=== PATIENT | female | born 1945 | race Caucasian/White ===

== ENCOUNTER 2019-01-05 06:03 | Emergency (ER) | payer OTHER, MEDICARE ==
[2019-01-05] MEDS ORDERED: fentaNYL 100 MCG/2 ML SDV IVPUSH ONE (06:25)
--- NOTE | 2019-01-05 06:25 | EDM.PDOC ---
ED HPI GENERAL MEDICAL PROBLEM - General Chief Complaint: Trauma Stated Complaint: Trauma Time Seen by Provider: 01/05/19 06:03 Source of Information: Reports: Patient History Limitations: Reports: No Limitations - History of Present Illness INITIAL COMMENTS - FREE TEXT/NARRATIVE: Pt. presents to ER via EMS. Pt. states that she fell backward down the stairs while carrying clothes up stairs. Unknown loss of consciousness. She complains of neck pain, no numbness/tingling in extremities. Her primary complaint is that of posterior chest pain, primarily on the L side. She states that she drinking some last night. On arrival of EMS, she was hypoxia with an O2 sat of 80%. Her O2 sat increased to 95% after oxygen was started by nasal cannula. She complains of pain to her R anterior chest pain, L posteriolateral chest, and mid to lower back pain. She denies any pelvic or long bone injury. Onset Date: 01/04/19 Location: Reports: Head, Chest, Back, Lower Extremity, Right - Related Data Allergies Allergy/AdvReac Type Severity Reaction Status Date / Time clindamycin AdvReac Diarrhea Verified 03/22/18 13:31 Home Meds: Home Meds Albuterol Sulfate [Proair Hfa] 2 puff INH Q4H PRN 03/05/18 [History] Amitriptyline HCl 100 mg PO BEDTIME 03/05/18 [History] Amitriptyline [Elavil] 25 mg PO BEDTIME 03/05/18 [History] Aspirin [Halfprin] 81 mg PO DAILY 03/05/18 [History] Benazepril [Lotensin] 20 mg PO DAILY 03/05/18 [History] Budesonide/Formoterol Fumarate [Symbicort 160-4.5 Mcg Inhaler] 2 puff INH BID [History] Carisoprodol [Soma] 350 mg PO QID PRN 03/05/18 [History] Celecoxib [CeleBREX] 200 mg PO DAILY 03/05/18 [History] Cholecalciferol (Vitamin D3) [Vitamin D3] 4,000 unit PO DAILY 03/05/18 [History] Cyanocobalamin (Vitamin B12) [Vitamin B12] 1 ml IM Q30D 03/05/18 [History] DULoxetine [Cymbalta] 40 mg PO BID 03/05/18 [History] Estrogens, Conjugated [Premarin] 1 tab PO DAILY 03/05/18 [History] Fish Oil/DHA/EPA [Fish Oil 1,200 MG] 1,200 mg PO BID 03/05/18 [History] Gabapentin [Neurontin] 100 mg PO TID 30 Days #90 capsule 03/05/18 [Rx] Hydrocodone/Acetaminophen [[place] 10-325 Tablet] 1 tab PO Q4H PRN 03/05/18 [ History] Triamcinolone Acetonide [Kenalog 0.1% Crm] 1 applic TOP BID PRN 03/05/18 [ History] Zolpidem Tartrate [Ambien] 10 mg PO BEDTIME 03/05/18 [History] hydrOXYzine pamoate [Vistaril] 50 - 100 mg PO Q6H PRN 03/05/18 [History] Past Medical History HEENT History: Reports: Hard of Hearing Cardiovascular History: Reports: Hypertension Respiratory History: Reports: COPD, Other (See Below) Other Respiratory History: "Smoker's cough" Musculoskeletal History: Reports: Arthritis, Back Pain, Chronic, Gout, Osteoarthritis, Osteoporosis, RA Neurological History: Reports: Other (See Below) Other Neuro History: HX Murillo's palsy Psychiatric History: Reports: Anxiety, Depression Hematologic History: Reports: B12 Deficiency Dermatologic History: Reports: Venous Stasis Dermatitis - Infectious Disease History Infectious Disease History: Reports: Hepatitis C - Past Surgical History HEENT Surgical History: Reports: Cataract Surgery Cardiovascular Surgical History: Reports: None Respiratory Surgical History: Reports: None GI Surgical History: Reports: Appendectomy, Cholecystectomy Female Surgical History: Reports: Hysterectomy, Salpingo-Oophorectomy Musculoskeletal Surgical History: Reports: Arthroscopic Knee Dermatological Surgical History: Reports: None Social & Family History - Family History Musculoskeletal: Reports: Fibromyalgia, Osteoarthritis, RA Neurological: Reports: Parkinson's Psychiatric: Reports: Depression Endocrine/Metabolic: Reports: Diabetes, type II Review of Systems - Review of Systems Review Of Systems: See Below Constitutional: Reports: No Symptoms Eyes: Reports: No Symptoms Ears: Reports: No Symptoms Nose: Reports: No Symptoms Mouth/Throat: Reports: No Symptoms Respiratory: Reports: Shortness of Breath, Other (chest pain, unable to take a deep breath) Cardiovascular: Reports: Chest Pain GI/Abdominal: Reports: No Symptoms Genitourinary: Reports: No Symptoms Musculoskeletal: Reports: No Symptoms Skin: Reports: No Symptoms Neurological: Reports: Other (loss of consciousness) Psychiatric: Reports: No Symptoms ED EXAM, GENERAL - Physical Exam Exam: See Below Exam Limited By: No Limitations General Appearance: Alert, WD/WN, No Apparent Distress Eye Exam: Bilateral Eye: EOMI, Normal Fundi, Normal Inspection, PERRL Ears: Normal External Exam, Normal Canal, Hearing Grossly Normal Nose: Normal Inspection, Normal Mucosa, No Blood Throat/Mouth: Normal Inspection, Normal Lips, Normal Teeth, Normal Gums, Normal Oropharynx Head: Atraumatic, Normocephalic Neck: Normal Inspection, Supple Respiratory/Chest: Decreased Breath Sounds (bilaterally, unable to take deep breath) Cardiovascular: Normal Peripheral Pulses, Regular Rate, Rhythm, No Edema Peripheral Pulses: 4+: Radial (L), Radial (R) GI/Abdominal: Soft, Non-Tender, No Organomegaly, No Distention, Pelvis Stable (Female) Exam: Deferred Rectal (Female) Exam: Deferred Back Exam: Other (bruising to mid back area, pain to midline low back) Extremities: Normal Inspection, Normal Range of Motion Neurological: Alert, Oriented, CN II-XII Intact, Normal Cognition, No Motor/ Sensory Deficits Psychiatric: Normal Affect, Normal Mood Skin Exam: Warm, Dry, Intact, Normal Color Lymphatic: No Adenopathy Course - Orders/Labs/Meds Orders: Active Orders 24 hr Category Date Time Status Chest 1V Frontal [CR] Stat Exams 01/05/19 06:08 Ordered CBC WITH AUTO DIFF [HEME] Stat Lab 01/05/19 06:08 Ordered COMPREHENSIVE METABOLIC PN,CMP [CHEM] Stat Lab 01/05/19 06:08 Ordered INR,PT,PROTHROMBIN TIME [COAG] Stat Lab 01/05/19 06:08 Ordered MAGNESIUM [CHEM] Stat Lab 01/05/19 06:11 Ordered PHOSPHORUS [CHEM] Stat Lab 01/05/19 06:11 Ordered - Radiology Interpretation Free Text/Narrative:: Chest x-ray reveals rib fractures on the right, at least 6th and 7th, ? non- displaced 5th rib fracture on the left. No pneumothorax. Possible pulmonary contusion. Departure - Departure Time of Disposition: 06:47 Disposition: DC/Tfer to [facility] 02 Clinical Impression: Trauma of chest, Fall, Pulmonary contusion - Discharge Information - My Orders Last 24 Hours: My Active Orders 01/05/19 06:08 Chest 1V Frontal [CR] Stat CBC WITH AUTO DIFF [HEME] Stat COMPREHENSIVE METABOLIC PN,CMP [CHEM] Stat INR,PT,PROTHROMBIN TIME [COAG] Stat 01/05/19 06:11 MAGNESIUM [CHEM] Stat PHOSPHORUS [CHEM] Stat - Assessment/Plan Last 24 Hours: My Active Orders 01/05/19 06:08 Chest 1V Frontal [CR] Stat CBC WITH AUTO DIFF [HEME] Stat COMPREHENSIVE METABOLIC PN,CMP [CHEM] Stat INR,PT,PROTHROMBIN TIME [COAG] Stat 01/05/19 06:11 MAGNESIUM [CHEM] Stat PHOSPHORUS [CHEM] Stat Plan: Trauma code was called. Pt. arrived to ER with c-collar in place. Assessment was performed. Decision was made to transfer the patient due to her hypoxia, history of underlying chronic disease, and loss of consciousness. Pain was treated with IV fentanyl. Pt. was hemodynamically stable during stay in ER. Discussed findings with patient. She agrees to transfer. No other imaging was performed at this facility.
[2019-01-05 06:41] LABS: ANION GAP 17.1 mmol/L (10-20); CHLORIDE,CL 102 mmol/L (98-107); SODIUM,NA 139 mmol/L (136-145)
--- NOTE | 2019-01-05 08:08 | CR ---
[id number] RAD/RAD Chest PA or AP 1V EXAM: SINGLE VIEW CHEST. INDICATION: TRAUMA. HYPOXIA COMPARISON: NO PREVIOUS SIMILAR EXAM IS AVAILABLE FINDINGS: Old appearing lower right rib fractures are seen. There is mild volume loss at the right lung base. There is no pneumothorax. There is minimal pleural reaction at the right lung base. The cardiomediastinal contour is moderately enlarged. IMPRESSION: OLD APPEARING LOWER RIGHT RIB FRACTURES. NO PNEUMOTHORAX. Russel Frye MD 01/05/19 0807 Thank you for allowing us to participate in the care of your patient.
== END 2019-01-05 06:45 | disposition short-term general hospital (02) ==
LOC: VM.ED 06:03
DX: S27.322A Contusion of lung, bilateral, initial encounter (principal); F41.9 Anxiety disorder, unspecified; F32.9 Major depressive disorder, single episode, unspecified; J44.9 Chronic obstructive pulmonary disease, unspecified; Z88.1 Allergy status to other antibiotic agents; Z79.82 Long term (current) use of aspirin; Z79.899 Other long term (current) drug therapy; W10.9XXA Fall (on) (from) unspecified stairs and steps, initial encounter
CPT/HCPCS: 36415; 71045; 80053; 83735; 84100; 85025; 85610; 96374; 99285-25; J3010

== ENCOUNTER 2022-05-21 23:15 | Inpatient (IN) | payer OTHER ==
[2022-05-21] MEDS ORDERED: Morphine 2 MG/ML SYRINGE ONE (23:32)
[2022-05-22] MEDS ORDERED: Sodium Chloride 0.9% 1,000 ML IV ONE ×2 (00:30→01:55)
[2022-05-22] MEDS ORDERED: Acetaminophen/HYDROcodone 325-10 MG Tab ONE (01:02)
[2022-05-22] MEDS ORDERED: Iopamidol 755 Mg/ML 100 ML Bottle ONE (01:10)
[2022-05-22] MEDS ORDERED: Piperacillin/Tazobactam 3.375 GM in Sodium Chloride 0.9% 100 ML IV ONE ×2 (02:20→09:26)
[2022-05-22] MEDS ORDERED: Morphine 4 MG/ML Syringe ONE (04:53)
[2022-05-22] MEDS ORDERED: Amitriptyline 25 MG Tab ONE (04:53)
[2022-05-22] MEDS ORDERED: Cyclobenzaprine 10 MG Tab ONE (04:53)
[2022-05-22] MEDS ORDERED: Enoxaparin 40 MG/0.4 ML Syringe ONE (04:53)
[2022-05-22] MEDS ORDERED: Zolpidem 5 MG Tab ONE (04:53)
[2022-05-22] MEDS ORDERED: Morphine 2 MG/ML SYRINGE ONE ×2 (04:53)
[2022-05-22] MEDS ORDERED: DULoxetine 20 MG Cap ONE ×2 (04:53)
[2022-05-22] MEDS ORDERED: NS + KCl 20mEq/L 1,000 ML IV ONE (11:11)
[2022-05-22] MEDS ORDERED: Formoterol/Mometasone 200-5 MCG 13 GM Inhaler ONE (19:54)
[2022-05-23] MEDS ORDERED: Potassium Chloride 20 MEQ Tab.ER ONE (05:22)
[2022-05-23] MEDS ORDERED: DULoxetine 20 MG Cap ONE (05:22)
[2022-05-23] MEDS ORDERED: Acetaminophen/HYDROcodone 325-10 MG Tab ONE (05:22)
[2022-05-23] MEDS ORDERED: Cyclobenzaprine 10 MG Tab ONE (05:22)
[2022-05-23] MEDS ORDERED: Morphine 2 MG/ML SYRINGE ONE ×2 (05:22)
[2022-05-23] MEDS ORDERED: Enoxaparin 40 MG/0.4 ML Syringe ONE (05:22)
[2022-05-23] MEDS ORDERED: Piperacillin/Tazobactam 3.375 GM in Sodium Chloride 0.9% 100 ML IV ONE (10:51)
[2022-06-14 13:42] LABS: CORONAVIRUS COVID-19 NAA NEGATIVE (NEGATIVE)
[2022-06-14 13:50] LABS: CHLORIDE,CL 95 mmol/L (98-107); SODIUM,NA 133 mmol/L (136-145)
[2022-06-14 13:51] LABS: ANION GAP 16.8 mmol/L (5-15); ESTIMATED GFR 52 mL/min (>=60)
[2022-06-14 13:58] LABS: BARBITURATE SCREEN,URINE NEGATIVE (NEGATIVE); BENZODIAZEPINES SCREEN,URINE NEGATIVE (NEGATIVE); BUPRENORPHINE SCREEN,URINE NEGATIVE (NEGATIVE); METHAMPHETAMINE SCREEN, URINE NEGATIVE (NEGATIVE); THC SCREEN,URINE 50 NG/ML NEGATIVE (NEGATIVE)
[2022-06-14 13:59] LABS: PCO2 ARTERIAL,POC 43 mmHg (35-48)
[2022-06-14 15:34] LABS: ANION GAP 11.1 mmol/L (5-15); CHLORIDE,CL 103 mmol/L (98-107); ESTIMATED GFR 97 mL/min (>=60); SODIUM,NA 137 mmol/L (136-145)
== END 2022-05-23 18:30 | disposition home or self-care (01) | DRG 871 ==
LOC: VM.ED 23:15 → VM.ZCENSUS 05-22 03:20
PROVIDERS: ADMIT Internal Medicine; ATTEND Internal Medicine
DX: A41.9 Sepsis, unspecified organism (principal); K85.90 Acute pancreatitis without necrosis or infection, unspecified; M80.8AXA Other osteoporosis with current pathological fracture, other site, initial encounter for fracture; M06.9 Rheumatoid arthritis, unspecified; I10 Essential (primary) hypertension; Z66 Do not resuscitate; F11.90 Opioid use, unspecified, uncomplicated; Z20.822 Contact with and (suspected) exposure to COVID-19; J44.9 Chronic obstructive pulmonary disease, unspecified; D50.9 Iron deficiency anemia, unspecified; E87.6 Hypokalemia; Z96.641 Presence of right artificial hip joint; Z90.49 Acquired absence of other specified parts of digestive tract; Z98.42 Cataract extraction status, left eye; Z87.81 Personal history of (healed) traumatic fracture; Z98.41 Cataract extraction status, right eye; Z90.710 Acquired absence of both cervix and uterus; Z98.890 Other specified postprocedural states; Z87.891 Personal history of nicotine dependence
CPT/HCPCS: 0240U; 36415; 36600; 71045; 71275; 74177; 80053; 80061; 80305-QW; 80307; 81001; 82140; 82150; 82803; 82947; 82977; 83605; 83690; 83735; 84100; 84484; 85025; 86140; 87040; 93005; A9270-GY; J1650; J2270; J2543; J3480; J7030; Q9967

== ENCOUNTER 2024-01-30 21:22 | Inpatient (IN) | payer MEDICARE, OTHER ==
[2024-01-30] MEDS ORDERED: Sodium Chloride 0.9% 10 ML Syringe FLUSH PRN (21:47)
[2024-01-30 22:05] LABS: BASOPHILS PERCENT AUTO 0.4 % (0.2-1.2); EOSINOPHILS ABSOLUTE AUTO 0.1 x10^3/uL (0.0-0.5); EOSINOPHILS PERCENT AUTO 0.6 % (0.0-4.0); HEMATOCRIT 35.5 % (33.0-47.0); HEMOGLOBIN 11.9 g/dL (12.0-16.0); IMMATURE GRAN ABSOLUTE AUTO 0.01 x10^3/uL (0.00-0.07); LYMPHOCYTES ABSOLUTE AUTO 0.9 x10^3/uL (1.0-4.8); LYMPHOCYTES PERCENT AUTO 9.1 % (25.0-50.0); MEAN CORPUSCULAR HEMOGLOBIN 28.7 pg (26.0-32.0); MEAN CORPUSCULAR HGB CONC 33.5 g/dL (32.0-36.0); MEAN CORPUSCULAR VOLUME 85.5 fL (78.0-93.0); MONOCYTES ABSOLUTE AUTO 0.8 x10^3/uL (0.0-0.8); MONOCYTES PERCENT AUTO 8.5 % (2.0-11.0); NEUTROPHILS ABSOLUTE AUTO 8.1 x10^3/uL (1.8-7.7); NEUTROPHILS PERCENT AUTO 81.3 % (50.0-80.0); PLATELET COUNT,PLT 381 x10^3/uL (130-400); RED BLOOD CELL COUNT 4.15 x10^6/uL (4.00-5.50); WHITE BLOOD CELL COUNT,WBC 9.9 x10^3/uL (4.0-10.0)
[2024-01-30] MEDS: Albuterol/Ipratropium 3.0-0.5 MG/3 ML Neb Soln NEB ONE (22:08)
[2024-01-30 22:25] LABS: PROTHROMBIN TIME 10.4 SEC (8.9-11.5); PTT,PARTIAL THROMBOPLSTIN TIME 26.5 SEC (21.9-33.8)
[2024-01-30] MEDS: methylPREDNISolone Sodium Succinate 125 MG/2 ML SDV IV ONE (22:28)
[2024-01-30 22:29] LABS: LACTIC ACID 1.2 mmol/L (0.4-2.0)
[2024-01-30] MEDS: cefTRIAXone 1 GM Vial IVPUSH ONE (22:30)
[2024-01-30 22:31] LABS: BLOOD UREA NITROGEN,BUN 13 mg/dL (7-18); CALCIUM 9.1 mg/dL (8.5-10.1); CARBON DIOXIDE,CO2 31 mmol/L (21-32); CHLORIDE,CL 94 mmol/L (98-107); GLUCOSE RANDOM 112 mg/dL (70-99); PROTEIN TOTAL,TP 7.2 g/dL (6.4-8.2); SODIUM,NA 135 mmol/L (136-145)
[2024-01-30 22:32] LABS: A/G RATIO 0.71; ALANINE AMINOTRANSFERASE,ALT 28 U/L (14-59); ALKALINE PHOSPHATASE 112 U/L (46-116); ASPARTATE AMNIOTRANSFERASE,AST 33 U/L (15-37); BILIRUBIN TOTAL 0.5 mg/dL (0.2-1.0); C-REACTIVE PROTEIN 3.32 mg/dL (<=0.50); MAGNESIUM 1.3 mg/dL (1.8-2.4); PRO B-TYPE NATRIUR PEPT,BNPPRO 1305 pg/mL (<=450)
[2024-01-30 22:34] LABS: ANION GAP 12.7 mmol/L (5-15); ESTIMATED GFR 58 mL/min (>=60); POTASSIUM,K 2.7 mmol/L (3.5-5.1)
[2024-01-30 23:02] LABS: HCO3 VENOUS,POC 33 mmol/L (22-29); O2 SATURATION VENOUS,POC 96 %; PCO2 VENOUS,POC 52 mmHg (41-51); PH VENOUS,POC 7.41 pH (7.32-7.43); PO2 VENOUS,POC 81 mmHg
[2024-01-30 23:18] LABS: CORONAVIRUS COVID-19 NAA NEGATIVE (NEGATIVE); INFLUENZA A NAA NEGATIVE (NEGATIVE); INFLUENZA B NAA NEGATIVE (NEGATIVE); RESPIRATORY SYNCYTIAL VIR NAA NEGATIVE (NEGATIVE)
[2024-01-30] MEDS ORDERED: Acetaminophen 325 MG Tab PO PRN (23:52)
[2024-01-30] MEDS ORDERED: Ondansetron 4 MG Tab.DIS PO PRN (23:52)
[2024-01-30] MEDS ORDERED: Albuterol/Ipratropium 3.0-0.5 MG/3 ML Neb Soln NEB PRN (23:59)
[2024-01-31] MEDS: Iopamidol 755 Mg/ML 100 ML Bottle IVPUSH ONE (00:23)
[2024-01-31] MEDS: Zolpidem 5 MG Tab PO SCH (03:01)
[2024-01-31] MEDS: Azithromycin 500 MG in Sodium Chloride 0.9% 250 ML IV ONE ×2 (03:21→20:38)
[2024-01-31] MEDS: Sodium Chloride 0.9% 1,000 ML IV ONE (04:33)
[2024-01-31] MEDS: Potassium Chloride Riders 20 MEQ in Premix Bag 1 BAG IV SCH ×2 (04:33→06:45)
[2024-01-31] MEDS: Azithromycin 500 MG in Sodium Chloride 0.9% 250 ML IV SCH (04:38)
[2024-01-31 07:17] LABS: HEMATOCRIT 33.9 % (33.0-47.0); HEMOGLOBIN 11.4 g/dL (12.0-16.0); MEAN CORPUSCULAR HEMOGLOBIN 29.2 pg (26.0-32.0); MEAN CORPUSCULAR HGB CONC 33.6 g/dL (32.0-36.0); MEAN CORPUSCULAR VOLUME 86.7 fL (78.0-93.0); RED BLOOD CELL COUNT 3.91 x10^6/uL (4.00-5.50); WHITE BLOOD CELL COUNT,WBC 6.3 x10^3/uL (4.0-10.0)
[2024-01-31 07:42] LABS: A/G RATIO 0.62; ALBUMIN 2.4 g/dL (3.4-5.0); ANION GAP 10.5 mmol/L (5-15); BILIRUBIN TOTAL 0.3 mg/dL (0.2-1.0); CALCIUM 8.6 mg/dL (8.5-10.1); CREATININE 0.7 mg/dL (0.55-1.02); EST CRCL DRUG DOSING (CG) 57.2 mL/min; MAGNESIUM 1.5 mg/dL (1.8-2.4); POTASSIUM,K 3.5 mmol/L (3.5-5.1); PROTEIN TOTAL,TP 6.3 g/dL (6.4-8.2)
[2024-01-31] MEDS: methylPREDNISolone Sodium Succinate 40 MG/1 ML SDV IVPUSH SCH (09:05)
[2024-01-31] MEDS: cefTRIAXone 1 GM Vial IVPUSH SCH (09:09)
[2024-01-31] MEDS: Celecoxib 100 MG Cap PO SCH (09:13)
[2024-01-31] MEDS: DULoxetine 20 MG Cap PO SCH (09:13)
[2024-01-31] MEDS: Enoxaparin 40 MG/0.4 ML Syringe SUBCUT SCH (09:13)
[2024-01-31] MEDS: Formoterol/Mometasone 200-5 MCG 13 GM Inhaler INH SCH (09:17)
[2024-01-31] MEDS: Amitriptyline 25 MG Tab PO SCH (20:41)
[2024-02-01 07:40] LABS: HEMATOCRIT 34.5 % (33.0-47.0); HEMOGLOBIN 11.6 g/dL (12.0-16.0); MEAN CORPUSCULAR HEMOGLOBIN 29.3 pg (26.0-32.0); MEAN CORPUSCULAR HGB CONC 33.6 g/dL (32.0-36.0); MEAN CORPUSCULAR VOLUME 87.1 fL (78.0-93.0); RED BLOOD CELL COUNT 3.96 x10^6/uL (4.00-5.50); WHITE BLOOD CELL COUNT,WBC 9.6 x10^3/uL (4.0-10.0)
[2024-02-01 07:59] LABS: A/G RATIO 0.62; ALBUMIN 2.4 g/dL (3.4-5.0); BILIRUBIN TOTAL 0.3 mg/dL (0.2-1.0); CREATININE 0.6 mg/dL (0.55-1.02); EST CRCL DRUG DOSING (CG) 66.73 mL/min; PROTEIN TOTAL,TP 6.3 g/dL (6.4-8.2)
[2024-02-01 08:09] LABS: ANION GAP 8.9 mmol/L (5-15); POTASSIUM,K 2.9 mmol/L (3.5-5.1)
[2024-02-01] MEDS: Azithromycin 250 MG Tab PO SCH (12:02)
[2024-02-01] MEDS: guaiFENesin 600 MG Tab.ER PO SCH (20:54)
[2024-02-01] MEDS: Potassium Chloride 20 MEQ Tab.ER PO SCH (20:54)
[2024-02-01] MEDS: Albuterol/Ipratropium 3.0-0.5 MG/3 ML Neb Soln NEB SCH (23:12)
[2024-02-02 07:41] LABS: BASOPHILS PERCENT AUTO 0.4 % (0.2-1.2); EOSINOPHILS ABSOLUTE AUTO 0.1 x10^3/uL (0.0-0.5); EOSINOPHILS PERCENT AUTO 1.6 % (0.0-4.0); HEMATOCRIT 34.7 % (33.0-47.0); HEMOGLOBIN 11.4 g/dL (12.0-16.0); IMMATURE GRAN ABSOLUTE AUTO 0.01 x10^3/uL (0.00-0.07); LYMPHOCYTES ABSOLUTE AUTO 1.7 x10^3/uL (1.0-4.8); LYMPHOCYTES PERCENT AUTO 22.2 % (25.0-50.0); MEAN CORPUSCULAR HGB CONC 32.9 g/dL (32.0-36.0); MEAN CORPUSCULAR VOLUME 88.3 fL (78.0-93.0); MONOCYTES ABSOLUTE AUTO 0.8 x10^3/uL (0.0-0.8); MONOCYTES PERCENT AUTO 10.4 % (2.0-11.0); NEUTROPHILS PERCENT AUTO 65.3 % (50.0-80.0); PLATELET COUNT,PLT 350 x10^3/uL (130-400); RED BLOOD CELL COUNT 3.93 x10^6/uL (4.00-5.50); WHITE BLOOD CELL COUNT,WBC 7.6 x10^3/uL (4.0-10.0)
[2024-02-02 08:08] LABS: CALCIUM 9.2 mg/dL (8.5-10.1); CREATININE 0.6 mg/dL (0.55-1.02); EST CRCL DRUG DOSING (CG) 66.73 mL/min; POTASSIUM,K 3.4 mmol/L (3.5-5.1)
[2024-02-02 08:11] LABS: ANION GAP 9.4 mmol/L (5-15)
[2024-02-02] MEDS: Furosemide 40 MG/4 ML VIAL IV SCH (14:35)
[2024-02-02] MEDS: Acetaminophen/HYDROcodone 325-10 MG Tab PO PRN (16:58)
[2024-02-02] MEDS: Cyclobenzaprine 10 MG Tab PO PRN (20:51)
[2024-02-03 07:01] LABS: ANION GAP 9.3 mmol/L (5-15); BASOPHILS PERCENT AUTO 0.3 % (0.2-1.2); CALCIUM 9.2 mg/dL (8.5-10.1); CREATININE 0.6 mg/dL (0.55-1.02); EOSINOPHILS ABSOLUTE AUTO 0.1 x10^3/uL (0.0-0.5); EOSINOPHILS PERCENT AUTO 1.9 % (0.0-4.0); EST CRCL DRUG DOSING (CG) 65.35 mL/min; HEMATOCRIT 35.9 % (33.0-47.0); HEMOGLOBIN 12.2 g/dL (12.0-16.0); LYMPHOCYTES ABSOLUTE AUTO 1.9 x10^3/uL (1.0-4.8); LYMPHOCYTES PERCENT AUTO 30.1 % (25.0-50.0); MEAN CORPUSCULAR HEMOGLOBIN 29.9 pg (26.0-32.0); MONOCYTES ABSOLUTE AUTO 0.7 x10^3/uL (0.0-0.8); MONOCYTES PERCENT AUTO 11.8 % (2.0-11.0); NEUTROPHILS ABSOLUTE AUTO 3.5 x10^3/uL (1.8-7.7); NEUTROPHILS PERCENT AUTO 55.9 % (50.0-80.0); PLATELET COUNT,PLT 354 x10^3/uL (130-400); POTASSIUM,K 3.3 mmol/L (3.5-5.1); RED BLOOD CELL COUNT 4.08 x10^6/uL (4.00-5.50); WHITE BLOOD CELL COUNT,WBC 6.3 x10^3/uL (4.0-10.0)
== END 2024-02-03 10:30 | disposition home or self-care (01) | DRG 193 ==
LOC: VM.ED 21:22 → VM.MS 22:51
PROVIDERS: ADMIT Family Medicine; ATTEND Family Medicine
DX: J18.9 Pneumonia, unspecified organism (principal); J96.01 Acute respiratory failure with hypoxia; J44.1 Chronic obstructive pulmonary disease with (acute) exacerbation; J44.0 Chronic obstructive pulmonary disease with (acute) lower respiratory infection; E87.1 Hypo-osmolality and hyponatremia; I10 Essential (primary) hypertension; Z88.1 Allergy status to other antibiotic agents; Z66 Do not resuscitate; M06.9 Rheumatoid arthritis, unspecified; G89.4 Chronic pain syndrome; M81.0 Age-related osteoporosis without current pathological fracture; F41.1 Generalized anxiety disorder; F32.A Depression, unspecified; E87.6 Hypokalemia; M10.9 Gout, unspecified; G47.00 Insomnia, unspecified; F17.210 Nicotine dependence, cigarettes, uncomplicated; Z88.0 Allergy status to penicillin; Z90.89 Acquired absence of other organs; Z79.82 Long term (current) use of aspirin; Z79.899 Other long term (current) drug therapy; Z98.49 Cataract extraction status, unspecified eye; Z90.710 Acquired absence of both cervix and uterus; Z90.722 Acquired absence of ovaries, bilateral
CPT/HCPCS: 0241U; 36415; 71045; 71046; 71275; 80048; 80053; 82803; 83605; 83735; 83880; 84484; 85025; 85027; 85379; 85610; 85730; 86140; 87040; 93005; 93010; 94640; 96374; 96375; 99284; 99285-25; A9270-GY; J0456; J0696; J1650; J1940; J2919; J3480; J7030; J7050; J7620-GY; Q9967

== ENCOUNTER 2024-03-18 19:08 | Emergency (ER) | payer OTHER, MEDICARE ==
[2024-03-18] MEDS ORDERED: Sodium Chloride 0.9% 10 ML Syringe FLUSH PRN (19:14)
[2024-03-18 19:33] LABS: BASOPHILS ABSOLUTE AUTO 0.1 x10^3/uL (0.0-0.2); BASOPHILS PERCENT AUTO 0.7 % (0.2-1.2); EOSINOPHILS ABSOLUTE AUTO 0.3 x10^3/uL (0.0-0.5); EOSINOPHILS PERCENT AUTO 2.8 % (0.0-4.0); HEMOGLOBIN 11.7 g/dL (12.0-16.0); IMMATURE GRAN ABSOLUTE AUTO 0.01 x10^3/uL (0.00-0.07); LYMPHOCYTES ABSOLUTE AUTO 1.7 x10^3/uL (1.0-4.8); LYMPHOCYTES PERCENT AUTO 19.1 % (25.0-50.0); MEAN CORPUSCULAR HEMOGLOBIN 27.5 pg (26.0-32.0); MEAN CORPUSCULAR HGB CONC 33.4 g/dL (32.0-36.0); MEAN CORPUSCULAR VOLUME 82.4 fL (78.0-93.0); NEUTROPHILS PERCENT AUTO 66.3 % (50.0-80.0); PLATELET COUNT,PLT 331 x10^3/uL (130-400); RED BLOOD CELL COUNT 4.25 x10^6/uL (4.00-5.50); WHITE BLOOD CELL COUNT,WBC 9.1 x10^3/uL (4.0-10.0)
[2024-03-18] MEDS: Piperacillin/Tazobactam 4.5 GM in Sodium Chloride 0.9% 100 ML IV ONE (19:40)
[2024-03-18] MEDS: Albuterol/Ipratropium 3.0-0.5 MG/3 ML Neb Soln NEB ONE (19:40)
[2024-03-18] MEDS: methylPREDNISolone Sodium Succinate 125 MG/2 ML SDV IV ONE (19:40)
[2024-03-18 19:49] LABS: A/G RATIO 0.82; ALANINE AMINOTRANSFERASE,ALT 27 U/L (14-59); ALBUMIN 3.1 g/dL (3.4-5.0); ALKALINE PHOSPHATASE 105 U/L (46-116); ASPARTATE AMNIOTRANSFERASE,AST 21 U/L (15-37); BILIRUBIN TOTAL 0.3 mg/dL (0.2-1.0); BLOOD UREA NITROGEN,BUN 11 mg/dL (7-18); C-REACTIVE PROTEIN 0.73 mg/dL (<=0.50); CALCIUM 8.9 mg/dL (8.5-10.1); CARBON DIOXIDE,CO2 33 mmol/L (21-32); CHLORIDE,CL 101 mmol/L (98-107); CREATININE 0.9 mg/dL (0.55-1.02); GLUCOSE RANDOM 93 mg/dL (70-99); MAGNESIUM 1.6 mg/dL (1.8-2.4); POTASSIUM,K 4.1 mmol/L (3.5-5.1); PROTEIN TOTAL,TP 6.9 g/dL (6.4-8.2); SODIUM,NA 140 mmol/L (136-145)
[2024-03-18 19:50] LABS: PROTHROMBIN TIME 9.7 SEC (8.9-11.5); PTT,PARTIAL THROMBOPLSTIN TIME 24.7 SEC (21.9-33.8)
[2024-03-18 19:51] LABS: HCO3 VENOUS,POC 31 mmol/L (22-29); O2 SATURATION VENOUS,POC 93 %; PCO2 VENOUS,POC 46 mmHg (41-51); PH VENOUS,POC 7.44 pH (7.32-7.43); PO2 VENOUS,POC 64 mmHg
[2024-03-18 19:52] LABS: ANION GAP 10.1 mmol/L (5-15); ESTIMATED GFR 65 mL/min (>=60)
[2024-03-18 20:09] LABS: LACTIC ACID 0.9 mmol/L (0.4-2.0)
[2024-03-18] MEDS ORDERED: Azithromycin 500 MG in Sodium Chloride 0.9% 250 ML IV ONE (20:25)
[2024-03-18] MEDS ORDERED: Take Home: Amoxicillin 875 MG Tab, 2 Tab Pack ONE (23:48)
[2024-03-18] MEDS ORDERED: Take Home: Doxycycline 100 MG Cap, 4 Cap Pack ONE (23:49)
[2024-03-18] MEDS: Take Home: Amoxicillin/Clavulanate K 875-125 MG Tab, 2 Tab Pack PO ONE (23:55)
[2024-03-18] MEDS: Take Home: Doxycycline 100 MG Cap, 4 Cap Pack PO ONE (23:55)
== END 2024-03-18 23:55 | disposition home or self-care (01) ==
LOC: VM.ED 19:08
DX: J69.0 Pneumonitis due to inhalation of food and vomit (principal); J44.1 Chronic obstructive pulmonary disease with (acute) exacerbation; I10 Essential (primary) hypertension; Z90.49 Acquired absence of other specified parts of digestive tract; Z90.710 Acquired absence of both cervix and uterus; Z79.51 Long term (current) use of inhaled steroids; Z79.899 Other long term (current) drug therapy; Z88.1 Allergy status to other antibiotic agents; Z87.891 Personal history of nicotine dependence
CPT/HCPCS: 36415; 71045; 80053; 82803; 83605; 83735; 85025; 85610; 85730; 86140; 87040; 94640; 94760; 96365; 96375; 99284; 99285-25; A9270-GY; J2543; J2919; J3490; J7620-GY